=== PATIENT | female | born 1955 | race Caucasian/White ===

== ENCOUNTER 2018-07-31 16:59 | Emergency (ER) | payer OTHER ==
[~2018-07-31] VITALS: Ht 154.9 cm; Wt 88.6 kg
[2018-07-31] MEDS ORDERED: MAVIK (17:06)
[2018-07-31] MEDS ORDERED: diphenhydrAMINE INJ 50MG/ML VIAL (J1200) IV ONE (17:30)
[2018-07-31] MEDS ORDERED: NS 1,000 ML IV ONE (17:30)
[2018-07-31] MEDS ORDERED: FAMOTIDINE INJ 20MG/2ML VIAL (S0028) IVP ONE (17:30)
[2018-07-31] MEDS ORDERED: methylPREDNISolone INJ 125 MG/2 ML VIAL (J2930) IV ONE (17:30)
[2018-07-31 18:39] VITALS: BP 155/79
[2018-07-31] MEDS ORDERED: PRED20TA PO ×2 (19:03→20:14)
[2018-07-31] MEDS ORDERED: BENA25CA4 PO (19:03)
== END 2018-07-31 19:19 | disposition home or self-care (01) ==
LOC: M ED 16:59
DX: R22.0 Localized swelling, mass and lump, head (principal); L29.9 Pruritus, unspecified; T50.8X5A Adverse effect of diagnostic agents, initial encounter; C18.9 Malignant neoplasm of colon, unspecified; Z79.899 Other long term (current) drug therapy
CPT/HCPCS: 93041; 94760; 96374; 96375; 99284; J1200; J2930

== ENCOUNTER → 2018-07-31 | Outpatient (CLI) | payer OTHER ==
[~2018-07-31] MED LIST: BENA25CA4 PO; MAVIK; PRED20TA PO; PROHANCE 279.3MG/ML 15ML VIAL (A9576) As Ordered ONE; PROHANCE 279.3MG/ML 5ML VIAL (A9576) As Ordered ONE
--- NOTE | 2018-08-15 10:58 | REP ---
MRI ABDOMEN AND LIVER WITHOUT AND WITH IV GADOLINIUM: HISTORY: Carcinoma of the colon. Comparison CT study October 31, 2005. Comparison CT study of the chest, abdomen and pelvis is retrieved and reviewed from [facility] in [place] dated July 07, 2018. Liver lesion evaluation. History of colon cancer pn surveillance. The recent CT study reported a 5 mm low attenuation liver lesion too small to characterize. TECHNIQUE: Axial and coronal T1- and T2-weighted sequences include spin echo, fast spin echo, diffusion, in- and [id number], and dynamically acquired sequential post gadolinium enhanced images. MRI FINDINGS: T2-weighted scans demonstrate a focal well-circumscribed 5 mm T2 hyperintensity in the inferior tip of the right lobe of the liver consistent with a cyst. This has a low T1 signal intensity and shows absence of contrast enhancement consistent with a small cyst. There is a second even smaller focal T2 hyperintensity higher up in the right lobe only 1-2 mm in diameter also consistent with a small cyst. There is a wedge-shaped area of decreased T1 and a increased T2 signal intensity in the right lobe of the liver laterally, which shows a subtle overlying contour indentation. This may be an area of scarring in the liver. There is subtle contrast enhancement in this distribution. Subtle hyper-attenuation is seen here on the recent CT study. The 2006 CT study was done without contrast and does not show any focal abnormality. The gallbladder is surgically absent. No adrenal lesion is seen. The spleen is unremarkable. No pancreatic lesion is seen. No upper abdominal adenopathy is observed. There is a small accessory splenule along the inferior edge of the spleen as seen on CT. This is unchanged from 2006. IMPRESSION: Two small hepatic cysts. Area of suspected fibrosis in the right lobe of the liver laterally with an ill-defined wedge-shaped area of enhancement and abnormal signal intensity. There is some contrast enhancement on recent CT in this distribution. There is no evidence to suggest hepatic or upper abdominal metastatic disease. Electronically Signed by Narayan Wakefield MD 08/15/2018 04:50 P
== END ==
LOC: M RAD 14:44
DX: K76.89 Other specified diseases of liver (principal)
CPT/HCPCS: 74183; A9576